=== PATIENT | female | born 1955 | race Caucasian/White ===

== ENCOUNTER 2020-12-06 14:28 | Emergency (ER) | payer MEDICARE ==
[2020-12-06 15:13] LABS: HEMOGLOBIN 14.7 gm/dl (12.3-15.3); RED BLOOD COUNT 4.76 M/UL (4.00-5.10); WHITE BLOOD COUNT 5.4 K/UL (4.5-11.0)
[2020-12-06 16:07] LABS: BUN/CREATININE RATIO 21 (0-10)
== END 2020-12-06 16:58 | disposition left against medical advice (07) ==
LOC: ER1 14:28
PROVIDERS: Family Medicine
DX: R42 Dizziness and giddiness (principal); E87.6 Hypokalemia; E11.9 Type 2 diabetes mellitus without complications; Z79.84 Long term (current) use of oral hypoglycemic drugs; Z79.899 Other long term (current) drug therapy
CPT/HCPCS: 80053; 82550; 82553; 83735; 83874; 84439; 84443; 84484; 85025; 93005; 99284

== ENCOUNTER → 2021-11-10 | Outpatient (CLI) | payer MEDICARE | LOC: EXRD 14:52 | DX: R05.9 Cough, unspecified (principal); R09.89 Other specified symptoms and signs involving the circulatory and respiratory systems; R91.8 Other nonspecific abnormal finding of lung field; J90 Pleural effusion, not elsewhere classified | CPT/HCPCS: 71046 ==

== ENCOUNTER 2021-11-22 20:48 | Emergency (ER) | payer MEDICARE ==
[2021-11-22 22:44] LABS: HEMOGLOBIN 13.9 gm/dl (12.3-15.3); RED BLOOD COUNT 4.68 M/UL (4.00-5.10); WHITE BLOOD COUNT 12.1 K/UL (4.5-11.0)
[2021-11-22 23:05] LABS: BUN/CREATININE RATIO 26 (0-10)
== END 2021-11-23 08:40 | disposition short-term general hospital (02) ==
LOC: ER1 20:48
PROVIDERS: Nurse Practitioner
DX: K63.0 Abscess of intestine (principal); K86.89 Other specified diseases of pancreas; E11.9 Type 2 diabetes mellitus without complications; E78.5 Hyperlipidemia, unspecified; I10 Essential (primary) hypertension; F17.210 Nicotine dependence, cigarettes, uncomplicated; Z20.822 Contact with and (suspected) exposure to COVID-19
CPT/HCPCS: 0240U; 36600; 71045; 80053; 81001; 82550; 82553; 82803; 83605; 83690; 83880; 84484; 85025; 87040; 93005; 96374; 96375; 96376; 99285; J0696; J2270; J2405; J2543; Q9967

== ENCOUNTER 2021-12-03 13:52 | Inpatient (IN) | payer MEDICARE ==
[~2021-12-03] VITALS: Ht 165.1 cm; Wt 54.2 kg
[2021-12-03 15:28] LABS: BUN/CREATININE RATIO 30 (0-10)
[2021-12-03] MEDS ORDERED: LISINOPRIL20 MG PO (17:49)
[2021-12-03] MEDS ORDERED: ROXICODONE5 MG PO (17:49)
[2021-12-03] MEDS ORDERED: PRAVASTATIN SOD40 MG PO (17:50)
[2021-12-03] MEDS ORDERED: LEVOTHYROXINE100 MCG PO (17:50)
[2021-12-03] MEDS ORDERED: METFORMIN HCL500 MG PO (17:51)
[2021-12-03] MEDS ORDERED: FAMOTIDINE20 MG PO (17:52)
[2021-12-05 02:21] LABS: RED BLOOD COUNT 4.21 M/UL (4.00-5.10); WHITE BLOOD COUNT 21.5 K/UL (4.5-11.0)
[2021-12-05 02:40] LABS: BUN/CREATININE RATIO 30 (0-10)
[2021-12-06] MEDS ORDERED: ZOFRAN 4 MG TAB4 MG PO (10:00)
[2021-12-08 06:20] LABS: HEMOGLOBIN 11.6 gm/dl (12.3-15.3); RED BLOOD COUNT 4.11 M/UL (4.00-5.10); WHITE BLOOD COUNT 8.8 K/UL (4.5-11.0)
[2021-12-08 06:50] LABS: BUN/CREATININE RATIO 24 (0-10)
[2021-12-09 06:34] LABS: HEMOGLOBIN 12.3 gm/dl (12.3-15.3); RED BLOOD COUNT 4.29 M/UL (4.00-5.10); WHITE BLOOD COUNT 9.3 K/UL (4.5-11.0)
[2021-12-09 08:54] LABS: BUN/CREATININE RATIO 21 (0-10)
[2021-12-10 06:41] LABS: HEMOGLOBIN 11.7 gm/dl (12.3-15.3); RED BLOOD COUNT 4.16 M/UL (4.00-5.10); WHITE BLOOD COUNT 10.1 K/UL (4.5-11.0)
[2021-12-10 07:11] LABS: BUN/CREATININE RATIO 35 (0-10)
[2021-12-10] MEDS ORDERED: FUROSEMIDE20 MG PO (12:25)
[2021-12-11 07:04] LABS: HEMOGLOBIN 12.1 gm/dl (12.3-15.3); RED BLOOD COUNT 4.35 M/UL (4.00-5.10); WHITE BLOOD COUNT 8.8 K/UL (4.5-11.0)
[2021-12-11] MEDS ORDERED: ROXICODONE5 MG PO (09:08)
[2021-12-11 10:03] LABS: BUN/CREATININE RATIO 35 (0-10)
[2021-12-12 06:35] LABS: RED BLOOD COUNT 4.27 M/UL (4.00-5.10); WHITE BLOOD COUNT 8.6 K/UL (4.5-11.0)
[2021-12-12 07:04] LABS: BUN/CREATININE RATIO 34 (0-10)
[2021-12-13 06:05] LABS: HEMOGLOBIN 11.4 gm/dl (12.3-15.3); RED BLOOD COUNT 4.07 M/UL (4.00-5.10); WHITE BLOOD COUNT 7.6 K/UL (4.5-11.0)
[2021-12-13 06:36] LABS: BUN/CREATININE RATIO 37 (0-10)
[2021-12-13] MEDS ORDERED: FUROSEMIDE20 MG PO (09:03)
[2021-12-14 06:46] LABS: HEMOGLOBIN 12.9 gm/dl (12.3-15.3); WHITE BLOOD COUNT 6.9 K/UL (4.5-11.0)
[2021-12-14 06:53] LABS: BUN/CREATININE RATIO 41 (0-10)
[2021-12-14 07:10] LABS: RED BLOOD COUNT 4.51 M/UL (4.00-5.10)
[2021-12-15 04:56] LABS: HEMOGLOBIN 11.3 gm/dl (12.3-15.3); WHITE BLOOD COUNT 8.1 K/UL (4.5-11.0)
[2021-12-15 04:59] LABS: RED BLOOD COUNT 4.04 M/UL (4.00-5.10)
[2021-12-15 05:28] LABS: BUN/CREATININE RATIO 35 (0-10)
--- NOTE | 2021-12-17 12:35 | NUR ---
PT GIVEN DILAUDID AT TIME OF DISCHARGE FOR AMBULANCE RIDE
== END 2021-12-17 12:13 | disposition home or self-care (01) | DRG 947 ==
LOC: ER1 13:52 → CDU 17:22 → M/S 17:22
PROVIDERS: Internal Medicine; Preventive Medicine Occupational Medicine; ADMIT Internal Medicine
PROC: B24BZZZ Ultrasonography of Heart with Aorta (ICD-10-PCS; principal; 2021-12-12)
DX: G89.3 Neoplasm related pain (acute) (chronic) (principal); E43 Unspecified severe protein-calorie malnutrition; Z20.822 Contact with and (suspected) exposure to COVID-19; C25.9 Malignant neoplasm of pancreas, unspecified; J90 Pleural effusion, not elsewhere classified; C78.7 Secondary malignant neoplasm of liver and intrahepatic bile duct; C78.02 Secondary malignant neoplasm of left lung; C78.01 Secondary malignant neoplasm of right lung; J96.11 Chronic respiratory failure with hypoxia; Z68.1 Body mass index [BMI] 19.9 or less, adult; E78.5 Hyperlipidemia, unspecified; K21.9 Gastro-esophageal reflux disease without esophagitis; E03.9 Hypothyroidism, unspecified; E86.0 Dehydration; E86.9 Volume depletion, unspecified; F17.210 Nicotine dependence, cigarettes, uncomplicated; E11.9 Type 2 diabetes mellitus without complications; E87.6 Hypokalemia; E83.39 Other disorders of phosphorus metabolism; I08.3 Combined rheumatic disorders of mitral, aortic and tricuspid valves; E87.70 Fluid overload, unspecified; I10 Essential (primary) hypertension; Z66 Do not resuscitate; Z79.4 Long term (current) use of insulin; Z51.5 Encounter for palliative care; Z80.1 Family history of malignant neoplasm of trachea, bronchus and lung; Z80.9 Family history of malignant neoplasm, unspecified
CPT/HCPCS: ECHO; 36415; 71045; 80048; 80053; 81001; 82962; 83690; 83735; 83880; 84100; 84132; 85025; 85027; 85652; 86140; 93306; 96374; 96375; 96376; 99285; A6212; C9113; J1170; J1650; J1940; J2405; U0002